=== PATIENT | female | born 1955 | race Caucasian/White ===

== ENCOUNTER 2018-02-09 08:02 | Day surgery (SDC) | payer OTHER, SELFPAY ==
[2018-02-09 08:27] VITALS: BP 148/89; PULSE 107; RESP 16; TEMP 36.4; O2SAT 99
== END 2018-02-09 09:12 | disposition home or self-care (01) ==
LOC: EN 08:02 → AC 08:04
PROVIDERS: Family Provider Student in an Organized Health Care Education/Training Program; PCP Student in an Organized Health Care Education/Training Program; Visit Provider Surgery
PROC: F00ZJWZ Instrumental Swallowing and Oral Function Assessment using Swallowing Equipment (ICD-10-PCS; CPT 43235; principal; 2018-02-09 08:25)
DX: K21.9 Gastro-esophageal reflux disease without esophagitis (principal)
CPT/HCPCS: 91010

== ENCOUNTER 2018-02-20 06:07 | Day surgery (SDC) | payer OTHER, SELFPAY ==
[2018-02-20] VITALS (7 sets, daily range): BP systolic 104–144; BP diastolic 57–80; PULSE 89–98; RESP 15–18; TEMP 36.5–36.7; O2SAT 92–97; BMI 34.7
--- NOTE | 2018-02-20 07:27 | PCM.OPRPT ---
Problem List (1) Gastro-esophageal reflux disease without esophagitis Status: Acute Report of Operation Date of Procedure: 02/20/18 Pre-Operative Diagnosis: K21.9 gastroesophageal reflux disease without esophagitis Post-Operative Diagnosis: Same Surgery/Procedure Performed:: [id number], [id number] esophagogastroduodenoscopy with 48 hour pH probe Type of Anesthesia:: MAC Anesthesiologist: Jack Nava Description of Procedure: Patient was brought into the endoscopy suite. Back of her throat was sprayed with Cetacaine spray. Bite block was placed. She was placed in the left lateral decubitus position. She was given graded anesthesia. The scope was inserted into the back of the oropharynx and directed down through the esophagus into the stomach and into the duodenum without difficulty. Operative findings: 1. Duodenum: Normal in appearance no mass lesions no ulcerations. 2. Stomach: Normal appearance no mass lesions retroflexion showed a large sliding hiatal hernia. 3. Esophagus: Diaphragmatic hiatus was at approximately 37 cm Z line was at 32 cm Z line appeared all normal without signs of esophagitis. PH probe was marked to 26 cm placed in the back of the oropharynx and directed down appropriately. Suction was applied. PH probe was deployed without difficulty. Laparoscope was inserted back into the oropharynx and directed down through the esophagus and a photograph was obtained of the pH probe attached to the lateral sidewall of the esophagus. Scope was withdrawn and the patient tolerated the procedure well. - Admit VTE Documentation VTE Present on Admission: No VTE Mechan Device Prophylaxis: None VTE Pharm Prophylaxis ordered?: No Reason prophylaxis not ordered:: Treatment Not Indicated
== END 2018-02-20 08:31 | disposition home or self-care (01) ==
LOC: EN 06:08 → AC 06:09
PROVIDERS: Family Provider Student in an Organized Health Care Education/Training Program; PCP Student in an Organized Health Care Education/Training Program; Visit Provider Surgery
PROC: (CPT 43235; principal; 2018-02-20 06:30)
DX: K21.9 Gastro-esophageal reflux disease without esophagitis (principal); K44.9 Diaphragmatic hernia without obstruction or gangrene; I10 Essential (primary) hypertension; Z79.899 Other long term (current) drug therapy; Z79.82 Long term (current) use of aspirin
CPT/HCPCS: 43235; 91035; J7120

== ENCOUNTER 2018-04-03 10:22 | Day surgery (SDC) | payer OTHER, SELFPAY ==
[2018-04-03] VITALS (12 sets, daily range): BP systolic 121–152; BP diastolic 73–81; PULSE 84–101; RESP 16–20; TEMP 36.4–36.8; O2SAT 87–96; BMI 35.9
[2018-04-03 10:45] LABS: Hematocrit 41.2 % (37-47); Hemoglobin 13.2 g/dl (12.0-15.0); Mean Corpuscular Hgb 27.6 pg (27.0-32.0); Mean Platelet Vol. 9.6 fl (6.2-12.0); Platelet Count 329 K/mm3 (150-450); RBC Distribution Width CV 13.6 % (11.6-14.6); RBC Distribution Width SD 42.9 fl (35.1-43.9); Red Blood Count 4.79 M/mm3 (4.2-5.4); White Blood Count 7.2 K/mm3 (4.4-11.0)
[2018-04-03 10:46] LABS: Scan Indicated on CBC? Y/N NO
[2018-04-03 10:58] LABS: Anion Gap 9 (5-15); BUN 12 mg/dL (7-18); BUN/Creat Ratio 13.7 RATIO (10-20); Calcium,Total 8.9 mg/dL (8.5-10.1); Chloride 105 mmol/L (98-107); Creatinine, Serum 0.87 mg/dL (0.55-1.02); EST Glomerular Filtration Rate 69 mL/min (>60); Est Glom Filt Rate - Afr Amer 84 mL/min (>60); Estimated Creatinine Clearance 61.96 ml/min; Glucose 91 mg/dL (74-106); Sodium Level 140 mmol/L (136-145)
[2018-04-03] MEDS: Cefazolin 2 GM in 0.9% Normal Saline 100 ML IV (12:18)
--- NOTE | 2018-04-03 12:23 | PCM.OPRPT ---
Problem List (1) Gastro-esophageal reflux disease without esophagitis Status: Acute Report of Operation Date of Procedure: 04/03/18 Pre-Operative Diagnosis: k21.9 gastroesophageal reflux disease without esophagitis Post-Operative Diagnosis: Same Surgery/Procedure Performed:: Laparoscopic Saul fundoplication Type of Anesthesia:: General Anesthesiologist: Huseyin Fontaine Estimated Blood Loss (mL): 50cc Fluids Replaced: 1.5 l LR Description of Procedure: Patient was brought into the operating room and placed in the supine position. Under excellent endotracheal intubation her legs were placed up into the stirrups and the Vac-Pac was vacuum after all of her extremities and shoulders were properly padded. Chambers catheter was placed. The abdomen was sterilely prepped and draped in the usual fashion. Local was injected above the umbilicus and dissection was carried down to the fascia fascia was grasped with a [place] varies needle was placed inside the abdomen the abdomen was insufflated to 15 torr. A 10/12 trocar was placed in the abdomen using a Visiport. Patient was then placed in the head up position on the right side of the abdomen to #5 trochars were placed under direct visualization on the left side of the abdomen tomorrow #5 trochars were placed under direct visualization. In the far lateral right port the liver retractor was placed in a place this underneath the left lobe of the liver. In the far left trocar and a penetrating grasper was used and we brought down the stomach from its hiatal hernia. I then started on the lesser curvature the stomach using the harmonic dissector coming down to the right side of the alana and dissecting this free from the esophagus. I dissected this all the way up superiorly on the alana and started to dissect the esophagus free from the mediastinal structures. I then went to the greater curvature the stomach took this down with harmonic dissector rotating the stomach from a lateral medial standpoint I took the short gastrics down with harmonic dissector and excellent hemostasis I exposed the left alana of the diaphragm and dissected this free with the harmonic dissector once again dissecting the esophagus free from the surrounding structures and extending this superiorly to where it had dissected the right side of the alana. I had a nice window from the esophagus to both the left and right side I had lengthen the esophagus and it was in the abdomen at this time. Anesthesia then put a 50 Croatian bougie into the oropharynx and directed down into the stomach under direct visualization she had a rather large diaphragmatic hernia I used 4 sutures and brought this back together leaving just a little bit of the instrument that was able to get around the diaphragm and the esophagus all the sutures were sutured down with a fisherman's knot and I did not use pledgets. The bougie was then removed then wrapped the fundus of the stomach around posteriorly to the esophagus and brought it to the right side it laid flat and it does not retract. I then replaced the bougie before I started my suturing of the fundoplication. I then sutured the stomach using 2 sutures of Ethibond 1 through the left side of the stomach through the esophagus and then to the right side of the fundus this was tied down with a fisherman's knot and I used 1 more suture in similar fashion but this time I did not go through the esophagus. The bougie was removed the patient was noted to have an extremely loose and floppy wrap I was very satisfied with this. I inspected the spleen I did not see any bleeding I inspected the greater curvature the stomach I did not see any bleeding the liver was bruised from the liver retractor and there was a small subcapsular tear but it was not actively bleeding. I removed the liver retractor. I removed the 10/12 trocar. I closed this defect with a grainy suture of 0 Vicryl. I deflated the abdomen remove the trochars under direct visualization. Skin incisions were closed with septicum stitches of 4-0 Monocryl. Steri-Strips are applied sterile dressings were applied and the patient tolerated the procedure well. - Admit VTE Documentation VTE Present on Admission: No VTE Mechan Device Prophylaxis: SCD's VTE Pharm Prophylaxis ordered?: No Reason prophylaxis not ordered:: Treatment Not Indicated
[2018-04-03] MEDS: BUPIVACAINE LIPOSOME/PF 20 ML VIAL OPERA.SITE (12:40)
--- NOTE | 2018-04-03 17:08 | CPS ---
Patient has own CPAP she uses at home. Patient stated it is in the car. A request was made to the visitors in the room to bring in the CPAP for use tonight.
[2018-04-03] MEDS: Lactated Ringers 1,000 ML 50 ML IV (17:11)
[2018-04-03] MEDS: oxyCODONE 5 MG Tablet 10 MG PO (20:04)
[2018-04-03] MEDS: Cefazolin 1 GM/50 ML BAG IV (20:05)
[2018-04-03] MEDS: Pregabalin 25 MG Capsule PO (21:54)
[2018-04-04 02:20] VITALS: BP 154/77; PULSE 82; RESP 18; TEMP 37.4; O2SAT 96
[2018-04-04] MEDS: Cefazolin 1 GM/50 ML BAG IV (04:58)
[2018-04-04 07:33] LABS: Absolute Lymphocyte Count 0.96 X10^3/ul (0.83-4.51); Absolute Neutrophil Count 7.5 X10^3/uL (2.0-7.7); Basophil# 0.02 X10^3/uL; Basophil% 0.2 % (0-1); Eosinophil# 0.17 X10^3/uL; Eosinophils% 1.8 % (0-5); Hematocrit 37.5 % (37-47); Hemoglobin 12.2 g/dl (12.0-15.0); Lymphocyte # 0.96 X10^3/ul (4.0); Lymphocyte % 10.1 % (19-41); Mean Corp Hgb Conc 32.5 g/gl (32-36); Mean Corpuscular Hgb 28.5 pg (27.0-32.0); Mean Corpuscular Volume 87.6 fL (81-99); Mean Platelet Vol. 10.2 fl (6.2-12.0); Monocyte# 0.83 X10^3/uL; Monocyte% 8.8 % (0-10); Neutrophil # 7.46 X10^3/uL (2.7-7.7); Neutrophil % 78.9 % (47-70); Platelet Count 310 K/mm3 (150-450); RBC Distribution Width CV 13.8 % (11.6-14.6); RBC Distribution Width SD 43.7 fl (35.1-43.9); Red Blood Count 4.28 M/mm3 (4.2-5.4); White Blood Count 9.5 K/mm3 (4.4-11.0)
[2018-04-04 07:34] VITALS: O2SAT 96
[2018-04-04 07:36] VITALS: BP 146/79; PULSE 109; RESP 18; TEMP 37.2; O2SAT 94
[2018-04-04 07:36] LABS: POSITIVE COUNT NO; POSITIVE DIFFERENTIAL NO; POSITIVE MORPHOLOGY NO
[2018-04-04] MEDS: DULoxetine Hcl 60 MG Capsule PO (07:41)
[2018-04-04] MEDS: Pantoprazole Sodium 40 MG Tablet PO (07:41)
[2018-04-04] MEDS: HYDROCHLOROTHIAZIDE 12.5 MG CAPSULE PO (07:42)
[2018-04-04] MEDS: Verapamil SR 180 MG CAPSULE 360 MG PO (07:42)
[2018-04-04] MEDS: buPROPion (XL) 150 MG TABLET.XL PO (07:47)
--- NOTE | 2018-04-04 07:49 | PCM.DC.GS ---
Discharge Diet: Soft diet - Soft/Thin diet- foods that melt at room temperature i.e. applesauce, yogurts, ice cream, soups etc. Avoid pasta, meats, and breads Discharge Activity: May Not Drive - 5 days May shower in (days): 1 Lifting Restrictions: 10 pounds Call your doctor if your incision/area has: Continuous Slow Oozing, Sudden Increased Bleeding, Increased Pain/ Swelling, Increased Redness, Foul Smelling Discharge, Swelling at the incision site Call your doctor if you observe: Fever of 101 or Higher, Coldness, Increased Pain Suture Line Care: Avoid Pulling/Pushing, Avoid Pinching/Bending Change Dressing in (Days):: 4 - Leave steri-strips in place for 1 week. Allergies/Adverse Reactions: Allergies atorvastatin [From Lipitor] Adverse Reaction (Intermediate, Verified 04/03/18 15:36) leg aching and myalgia meperidine [From Demerol] Adverse Reaction (Intermediate, Verified 04/03/18 15:36) Mental status changes Medications to take at Discharge aspirin 81 mg tablet,delayed release 81 mg PO QDAY 01/23/18 bupropion HCl SR 150 mg tablet,12 hr sustained-release 150 mg PO QDAY 01/23/18 duloxetine 60 mg capsule,delayed release 60 mg PO QDAY 01/23/18 hydrochlorothiazide 12.5 mg tablet 12.5 mg PO QDAY 01/23/18 norethindrone acetate-ethinyl estradiol 0.5 mg-2.5 mcg tablet 1 tab PO QDAY 01/23/[address] 40 mg granules delayed-release for susp in packet 40 mg PO QDAY 01/23/18 verapamil ER (HS) 180 mg tablet,extended release 24 hr 360 mg PO DAILY tab 01/23/18 Pregabalin [Lyrica] 25 mg PO BID 03/29/18 Oxycodone [Oxyir] 10 mg PO Q6H PRN PRN 3 Days #10 tab 04/04/18 The following prescriptions were given: Oxycodone [Oxyir] 10 mg PO Q6H PRN PRN 3 Days #10 tab PRN Reason: Pain Primary Care Physician: Burke Corral DO [Primary Care Provider] - Test Results: Test results from this visit will be discussed in further detail at your follow-up appointment, if applicable. Please Follow Up With: Andreina Faye PA-Fred - [phone] When: 10 days Proposed Discharge Date: 04/04/18
--- NOTE | 2018-04-04 07:52 | DCINST_ITS ---
Discharge Diet: Soft diet - Soft/Thin diet- foods that melt at room temperature i.e. applesauce, yogurts, ice cream, soups etc. Avoid pasta, meats, and breads Discharge Activity: May Not Drive - 5 days May shower in (days): 1 Lifting Restrictions: 10 pounds Call your doctor if your incision/area has: Continuous Slow Oozing, Sudden Increased Bleeding, Increased Pain/ Swelling, Increased Redness, Foul Smelling Discharge, Swelling at the incision site Call your doctor if you observe: Fever of 101 or Higher, Coldness, Increased Pain Suture Line Care: Avoid Pulling/Pushing, Avoid Pinching/Bending Change Dressing in (Days):: 4 - Leave steri-strips in place for 1 week. Allergies/Adverse Reactions: Allergies atorvastatin [From Lipitor] Adverse Reaction (Intermediate, Verified 04/03/18 15 :36) leg aching and myalgia meperidine [From Demerol] Adverse Reaction (Intermediate, Verified 04/03/18 15: 36) Mental status changes Medications to take at Discharge aspirin 81 mg tablet,delayed release 81 mg PO QDAY 01/23/18 bupropion HCl SR 150 mg tablet,12 hr sustained-release 150 mg PO QDAY 01/23/18 duloxetine 60 mg capsule,delayed release 60 mg PO QDAY 01/23/18 hydrochlorothiazide 12.5 mg tablet 12.5 mg PO QDAY 01/23/18 norethindrone acetate-ethinyl estradiol 0.5 mg-2.5 mcg tablet 1 tab PO QDAY 04/[address] 40 mg granules delayed-release for susp in packet 40 mg PO QDAY 01/23/18 verapamil ER (HS) 180 mg tablet,extended release 24 hr 360 mg PO DAILY tab 04/04 Pregabalin [Lyrica] 25 mg PO BID 03/29/18 Oxycodone [Oxyir] 10 mg PO Q6H PRN PRN 3 Days #10 tab 04/04/18 The following prescriptions were given: Oxycodone [Oxyir] 10 mg PO Q6H PRN PRN 3 Days #10 tab PRN Reason: Pain Primary Care Physician: Burke Corral DO [Primary Care Provider] - Test Results: Test results from this visit will be discussed in further detail at your follow- up appointment, if applicable. Please Follow Up With: Andreina Faye PA-Fred - [phone] When: 10 days Proposed Discharge Date: 04/04/18
--- NOTE | 2018-04-04 07:52 | PCM.PN.SRG ---
Subjective: Patient evaluated resting comfortably in bed. She notes very minimal abdominal discomfort. She denies nausea, vomiting. She is urinating well. She is tolerating current diet. - Physical Exam General: Alert, Oriented x3, Cooperative Abdomen: Bowel Sounds Present, Soft, Non Tender, Distended - slightly, - - Incisions- c/d/i. No erythema or infection noted Vital Signs Temp Pulse Resp BP Pulse Ox 98.9 F 109 H 18 146/79 H 94 04/04/18 07:36 04/04/18 07:36 04/04/18 07:36 04/04/18 07:36 04/04/18 07:36 Oxygen Flow Rate (L/min) 4 Oxygen Delivery Method Nasal Cannula Weight: 222 lb 10.67 oz Body Mass Index (BMI) 35.9 Intake and Output for Last 24 Hours 04/02/18 04/03/18 04/04/18 23:59 23:59 23:59 Intake Total 1857 / 1857 1156 / 1156 Output Total 200 / 200 1250 / 1250 Balance 1657 / 1657 -94 / -94 Laboratory Tests Past 24 Hrs 04/03/18 04/03/18 04/04/18 10:41 10:41 06:47 WBC 7.2 9.5 RBC 4.79 4.28 Hgb 13.2 12.2 Hct 41.2 37.5 MCV 86.0 87.6 MCH 27.6 28.5 MCHC 32.0 32.5 RDW 13.6 13.8 RDW Differential 42.9 43.7 Plt Count 329 310 MPV 9.6 10.2 Immature Gran % (Auto) 0.200 Neut % (Auto) 78.9 H Lymph % (Auto) 10.1 L [place] % (Auto) 8.8 Eos % (Auto) 1.8 Baso % (Auto) 0.2 Absolute Neuts (auto) 7.5 Absolute Lymphs (auto) 0.96 Total Counted Not Reportable Sodium 140 Potassium 4.0 Chloride 105 Carbon Dioxide 26.0 Anion Gap 9 BUN 12 Creatinine 0.87 Estim Creat Clear Calc 61.96 Est GFR (MDRD) Af Amer 84 Est GFR (MDRD) Non-Af 69 BUN/Creatinine Ratio 13.7 Glucose 91 Calcium 8.9 Medical Necessity - Tobacco Use Smoking Status: Never smoker Assessment/Plan All Active Problems (Last Reviewed 03/24/18 @ 10:22 by Orlando Henry MD) History of esophagogastroduodenoscopy (EGD) (Acute) Gastro-esophageal reflux disease without esophagitis (Acute) History of laparoscopic cholecystectomy (Acute) History of right oophorectomy (Acute) History of hysterectomy (Acute) History of tonsillectomy (Acute) Hiatal hernia (Acute) Epigastric pain (Acute) Hemorrhoids (Acute) Acid reflux (Acute) Sleep apnea (Acute) Depression (Acute) I am following this patient in conjunction with Dr. Henry S/p laparoscopic Saul fundoplication Wean off of oxygen Ready for discharge
[2018-04-04] MEDS: Pregabalin 25 MG Capsule PO (09:43)
[2018-04-04] MEDS: NORETHINDRONE AC ETH ESTRADIOL PO (11:12)
[2018-04-04 12:38] VITALS: BP 148/75; PULSE 105; RESP 18; TEMP 37.2; O2SAT 92
== END 2018-04-04 13:20 | disposition home or self-care (01) ==
LOC: SDC 10:23 → AC 10:25 → MS3 14:31
PROVIDERS: Family Provider Student in an Organized Health Care Education/Training Program; PCP Student in an Organized Health Care Education/Training Program; Visit Provider Surgery
PROC: (CPT 43325; principal; 2018-04-03 12:00)
DX: K21.9 Gastro-esophageal reflux disease without esophagitis (principal); K44.9 Diaphragmatic hernia without obstruction or gangrene; I10 Essential (primary) hypertension; E78.00 Pure hypercholesterolemia, unspecified; F32.9 Major depressive disorder, single episode, unspecified; F41.9 Anxiety disorder, unspecified; G47.30 Sleep apnea, unspecified; Z79.82 Long term (current) use of aspirin; Z79.899 Other long term (current) drug therapy
CPT/HCPCS: 00790; 43280; 36415; 80048; 85025; 85027; J7120; J2405; J3490

== ENCOUNTER → 2018-06-14 22:23 | Outpatient (CLI) | payer OTHER, SELFPAY | PROVIDERS: Family Provider Student in an Organized Health Care Education/Training Program; PCP Student in an Organized Health Care Education/Training Program; Visit Provider Student in an Organized Health Care Education/Training Program | DX: G47.33 Obstructive sleep apnea (adult) (pediatric) (principal) | CPT/HCPCS: 95811 ==